=== PATIENT | female | born 1950 | race African-American/Black ===

== ENCOUNTER → 2018-05-18 | Outpatient (CLI) | payer MEDICARE ==
--- NOTE | 2018-05-18 15:50 | KCIC ---
Indication: Osteoporosis. Postmenopausal. TECHNIQUE: DEXA scan COMPARISON: None FINDINGS: The bone mineral density from L1-L4 measures 1.123 g/sq cm with T score of 0.7. The bone mineral density in the left femoral neck measures 0.991 g/sq cm with T score of 0.4. IMPRESSION: Normal bone mineral density at all measured sites. Electronically signed by: Clinton Headley DO (05/18/2018 3:46 PM) [id number]
== END | disposition home or self-care (01) ==
LOC: KCIC DEXA 11:05
DX: M81.0 Age-related osteoporosis without current pathological fracture (principal); E11.9 Type 2 diabetes mellitus without complications; Z90.710 Acquired absence of both cervix and uterus
CPT/HCPCS: 77080

== ENCOUNTER 2018-12-29 20:09 | Emergency (ER) | payer MEDICARE ==
[~2018-12-29] VITALS: Ht 160 cm; Wt 68.0 kg
[2018-12-29 20:21] VITALS: BP 182/78
[2018-12-29] MEDS ORDERED: CIPR500T94 PO (20:38)
--- NOTE | 2018-12-29 20:39 | PHYS DOC ---
Past Medical History Past Medical History: Diabetes-Type II, High Cholesterol, Hypertension Past Surgical History: Hysterectomy Alcohol Use: None Drug Use: None Adult General Chief Complaint Chief Complaint: LACERATION/AVULSION HPI HPI Patient is a 68 year old female that presents after passing out tracks and she stepped through someone's yard and stepped on some is sharp and went through her shoe. States that it cut her foot and her foot was bleeding. Has any pain at this time. Bleeding is controlled. Has a history of diabetes. Review of Systems Review of Systems Constitutional: Denies fever or chills [] Eyes: Denies change in visual acuity, redness, or eye pain [] HENT: Denies nasal congestion or sore throat [] Respiratory: Denies cough or shortness of breath [] Cardiovascular: No additional information not addressed in HPI [] GI: Denies abdominal pain, nausea, vomiting, bloody stools or diarrhea [] : Denies dysuria or hematuria [] Musculoskeletal: Denies back pain or joint pain [] Integument: Reports puncture wound to L foot. Neurologic: Denies headache, focal weakness or sensory changes [] Endocrine: Denies polyuria or polydipsia [] Complete systems were reviewed and found to be within normal limits, except as documented in this note. Allergies Allergies Allergies Coded Allergies Type Severity Reaction Last Updated Verified Penicillins Allergy Intermediate Rash 12/29/18 Yes Physical Exam Physical Exam Constitutional: Well developed, well nourished, no acute distress, non-toxic appearance. [] HENT: Normocephalic, atraumatic, bilateral external ears normal, oropharynx moist, no oral exudates, nose normal. [] Eyes: PERRLA, EOMI, conjunctiva normal, no discharge. [] Neck: Normal range of motion, no tenderness, supple, no stridor. [] Skin: dried blood and puncture wound to plantar lateral side of foot. Back: No tenderness, no CVA tenderness. [] Extremities: No tenderness, no cyanosis, no clubbing, ROM intact, no edema. [] Neurologic: Alert and oriented X 3, normal motor function, normal sensory function, no focal deficits noted. [] Psychologic: Affect normal, judgement normal, mood normal. [] Current Patient Data Vital Signs Vital Signs Date Time Temp Pulse Resp B/P (MAP) Pulse Ox O2 Delivery O2 Flow Rate FiO2 12/29/18 20:21 98.9 66 14 182/78 (112) 98 Room Air 98.9 EKG EKG [] Radiology/Procedures Radiology/Procedures [] Course & Med Decision Making Course & Med Decision Making Pertinent Labs and Imaging studies reviewed. (See chart for details) Patient has a high risk of infection due to DM. Concern for pseudomonas. Will place on Cipro. Dragon Disclaimer Dragon Disclaimer This electronic medical record was generated, in whole or in part, using a voice recognition dictation system. Departure Departure Impression: Primary Impression: Puncture wound Disposition: HOME, SELF-CARE Condition: STABLE Referrals: SHAHEEN CHANG D.O. (PCP) Patient Instructions: Puncture Wound Additional Instructions: Thank you for visiting [facility]. We appreciate you trusting us with your care. If any additional problems come up don't hesitate to return to visit us. Please follow up with your primary care provider so they can plan additional care if needed and know about the problem that you had. If symptoms worsen come back to the Emergency Department. Any concerning symptoms that start such as chest pain, shortness of air, weakness or numbness on one side of the body, running high fevers or any other concerning symptoms return to the ER. You have been prescribed an antibiotic today to help fight your infection. Please take all of the antibiotic as directed. If after 48 hours the infection is not improving, please return for more care. If the infection worsens, return to ER for additional care. Please keep wound clean and dry. Scripts Ciprofloxacin Hcl (CIPRO) 500 Mg Tablet 1 TAB PO BID for 7 Days, #14 TAB Prov: GEN FONTAINE APRN 12/29/18 GEN FONTAINE APRN Dec 29, 2018 20:38
[2018-12-29] MEDS ORDERED: DIPHTH,PERTUSS(ACELL),TET TOX 0.5 ML DISP.SYRIN. VAX IM ONE (21:00)
== END 2018-12-29 20:53 | disposition home or self-care (01) ==
LOC: ER 20:09
DX: S91.332A Puncture wound without foreign body, left foot, initial encounter (principal); E11.9 Type 2 diabetes mellitus without complications; E78.00 Pure hypercholesterolemia, unspecified; I10 Essential (primary) hypertension; Z88.0 Allergy status to penicillin; Z90.710 Acquired absence of both cervix and uterus; W22.8XXA Striking against or struck by other objects, initial encounter; Y93.89 Activity, other specified; Y92.89 Other specified places as the place of occurrence of the external cause; Y99.8 Other external cause status
CPT/HCPCS: 90471; 90715; 99283

== ENCOUNTER 2019-04-02 06:16 | Emergency (ER) | payer MEDICARE ==
[~2019-04-02] VITALS: Ht 154.9 cm; Wt 69.9 kg
[~2019-04-02 06:16] MED LIST: CIPR500T94 PO
[2019-04-02 06:20] VITALS: BP 136/79
[2019-04-02] MEDS ORDERED: TRAM-48 PO (06:52)
[2019-04-02] MEDS ORDERED: CYCL10TA2 PO (06:52)
--- NOTE | 2019-04-02 06:52 | PHYS DOC ---
Past Medical History Past Medical History: Diabetes-Type II, High Cholesterol, Hypertension Past Surgical History: Hysterectomy Alcohol Use: None Drug Use: None Adult General Chief Complaint Chief Complaint: LOWER BACK PAIN OR INJURY HPI HPI Patient is a 68 year old female patient with history of hypertension, dyslipidemia, diabetes mellitus who presents with complaint of back pain. Patient complaining of gradual onset of low back pain and bilateral hip for the last 3 days after she shoveled snow. Patient states the pain is a constant and sharp pain that getting worse with movement and activity and rated her pain 8 with activity. Patient denies radiation of pain, nausea and vomiting, focal neuro deficit, history of the same pain. Patient states she applied heat on her back and took aspirin without improvement of her pain. Review of Systems Review of Systems Constitutional: Denies fever or chills [] Eyes: Denies change in visual acuity, redness, or eye pain [] HENT: Denies nasal congestion or sore throat [] Respiratory: Denies cough or shortness of breath [] Cardiovascular: No additional information not addressed in HPI [] GI: Denies abdominal pain, nausea, vomiting, bloody stools or diarrhea [] : Denies dysuria or hematuria [] Musculoskeletal: Reports back pain or joint pain Integument: Denies rash or skin lesions [] Neurologic: Denies headache, focal weakness or sensory changes [] Endocrine: Denies polyuria or polydipsia [] All other systems were reviewed and found to be within normal limits, except as documented in this note. Current Medications Current Medications Current Medications Medications (Trade) Dose Ordered Sig/Janki Start Time Stop Time Status Last Admin Dose Admin Ketorolac Tromethamine (Toradol Im) 60 mg 1X ONCE 04/02/19 07:00 04/02/19 07:01 DC 04/02/19 07:03 60 MG Allergies Allergies Allergies Coded Allergies Type Severity Reaction Last Updated Verified Penicillins Allergy Intermediate Rash 12/29/18 Yes Physical Exam Physical Exam Constitutional: Well developed, well nourished, mild distress, non-toxic appearance. [] HENT: Normocephalic, atraumatic. Eyes: PERRLA, EOMI, conjunctiva normal, no discharge. [] Neck: Normal range of motion, no tenderness, supple, no stridor. [] Cardiovascular:Heart rate regular rhythm, no murmur [] Lungs & Thorax: Bilateral breath sounds clear to auscultation [] Abdomen: Bowel sounds normal, soft, no tenderness, no masses, no pulsatile mas ses. [] Skin: Warm, dry, no erythema, no rash. [] Back: No midline tenderness, bilateral paraspinal muscular spasm, no CVA ten derness. [] Extremities: No tenderness, no cyanosis, no clubbing, ROM intact, no edema. [] Neurologic: Alert and oriented X 3, no focal deficits noted. [] Psychologic: Affect normal, judgement normal, mood normal. [] Current Patient Data Vital Signs Vital Signs Date Time Temp Pulse Resp B/P (MAP) Pulse Ox O2 Delivery O2 Flow Rate FiO2 04/02/19 06:20 98.4 78 16 136/79 (98) 99 Room Air 98.4 EKG EKG [] Radiology/Procedures Radiology/Procedures [] Course & Med Decision Making Course & Med Decision Making Evaluation of patient in ER showed 68-year-old female patient with complaining of low back pain after physical activity that didn't get better with applying heat and taking aspirin. Patient had bilateral paraspinal muscle spasm without midline tenderness or neuro deficit. Patient treated with Toradol and felt better. Plan to discharge patient home with diagnosis of acute lumbosacral myofascial strain. Dragon Disclaimer Dragon Disclaimer This electronic medical record was generated, in whole or in part, using a voice recognition dictation system. Departure Departure Impression: Primary Impression: Acute lumbosacral myofascial strain Disposition: 01 HOME, SELF-CARE (at 0700) Condition: STABLE Referrals: SHAHEEN CHANG D.O. (PCP) Patient Instructions: Lumbosacral Strain Additional Instructions: Apply ice on the affected area Follow-up with your primary care physician in 3-5 days Return to ER if not getting better Scripts Tramadol Hcl (ULTRAM) 50 Mg Tablet 50 MG PO Q6HRS PRN for PAIN, #14 TAB 0 Refills Prov: YASMANY BAILEY MD 04/02/19 Cyclobenzaprine Hcl (CYCLOBENZAPRINE HCL) 10 Mg Tablet 1 TAB PO TID, #21 TAB Prov: YASMANY BAILEY MD 04/02/19 Problem Qualifiers Primary Impression: Acute lumbosacral myofascial strain Encounter type: initial encounter Qualified Codes: S39.012A - Strain of muscle, fascia and tendon of lower back, initial encounter YASMANY BAILEY MD Apr 02, 2019 06:52
[2019-04-02] MEDS ORDERED: KETOROLAC 60 MG/2 ML VIAL. IM ONE (07:00)
== END 2019-04-02 07:14 | disposition home or self-care (01) ==
LOC: ER 06:16
DX: S39.012A Strain of muscle, fascia and tendon of lower back, initial encounter (principal); E11.9 Type 2 diabetes mellitus without complications; E78.00 Pure hypercholesterolemia, unspecified; I10 Essential (primary) hypertension; Z90.710 Acquired absence of both cervix and uterus; R11.2 Nausea with vomiting, unspecified; Z88.0 Allergy status to penicillin; X50.9XXA Other and unspecified overexertion or strenuous movements or postures, initial encounter; X50.1XXA Overexertion from prolonged static or awkward postures, initial encounter; Y93.89 Activity, other specified; Y92.89 Other specified places as the place of occurrence of the external cause; Y99.8 Other external cause status
CPT/HCPCS: 96372; 99283; J1885

== ENCOUNTER → 2020-08-03 | Outpatient (CLI) | payer MEDICARE ==
[~2020-08-03] MED LIST changes: +CYCL10TA2 PO; +LIDOCAINE 1% Multi-Dose 20 ML VIAL. INJ ONE; +TRAM-48 PO
--- NOTE | 2020-08-03 15:13 | RAD ---
EXAM: Sonographic guided thyroid fine-needle aspiration. HISTORY: 69-year-old female presents for fine-needle aspiration of a subcentimeter right thyroid nodu le demonstrated on a study performed at an outside facility. TECHNIQUE: The risks of the procedure were discussed with the patient and written and verbal consent was obtained. A timeout was performed. Sonographic imaging of the thyroid was performed and the nodul e concern within the right thyroid lobe measuring 8 mm was identified. The skin in this location was sterilely prepped, draped and infiltrated with 1 percent lidocaine. Multiple passes were made through the nodule with 25-gauge needles using sonographic guidance. The aspirate was submitted to the patho logist for interpretation. Manual compression was maintained until hemostasis achieved. A sterile ban dage was placed. The patient tolerated the procedure without complication and was discharged in stabl e condition. IMPRESSION: Sonographic guided fine-needle aspiration of a right thyroid nodule described above. An a ddendum to this report will be submitted when pathology results are available. Electronically signed by: Opal Walker MD (08/03/2020 3:11 PM) [id number]
--- NOTE | 2020-08-04 12:11 | PATHOLOGY ---
Note [facility] Accession Number: [id number] TESTS RESULT FLAG UNITS REF RANGE LAB Clinician Provided Cytology Information No. of containers..01 Other (Miscellaneous) Source: RIGHT THYROID DIAGNOSIS: RIGHT THYROID NEGATIVE FOR MALIGNANT CELLS. THIS INTERPRETATION INCLUDES EVALUATION OF A CELL BLOCK. COMMENT POORLY CELLULAR SPECIMEN WITH FEW THYROID FOLLICULAR CELLS WITH SOME COLLOID AND RARE MACROPHAGES PRESENT. THESE FINDINGS FAVOR AN ADENOMATOID NODULE. HOWEVER THE SPECIMEN IS POORLY CELLULAR AND MAY NOT BE SUPERVISOR PRODUCT INSPECTION. SUGGEST CLINICAL AND RADIOLOGICAL CORRELATION AND FOLLOW UP. Signed out by: Bert Fontaine MD, Pathologist NPI- [id number] Performed by: Alma Velazquez, Stamp Clerk ([facility]) Gross description: 30ML, PINK, 3FX 6AD /LCS 08/04/2020 0148 Local FLAG LEGEND: L-Low Normal,H-High Normal,LL-Alert Low,HH-Alert High <-Panic Low,>-Panic High,A-Abnormal,AA-Critical Abnormal Performed at: [facility] [address] [place] [address] Bert Fontaine MD, Specimen Comment: A courtesy copy of this report has been sent to [phone], [phone] Specimen Comment: [id number] Specimen Comment: [id number] Specimen Comment: Report sent to DR LOVE / DR CHANG Specimen Comment: A duplicate report has been generated due to demographic updates. Performed at: 01 [facility] [address], [place], [place] [id number] MD Bert Fontaine MD Phone: [phone]
== END | disposition home or self-care (01) ==
LOC: US 13:25
PROVIDERS: ATTEND Otolaryngology
DX: E04.1 Nontoxic single thyroid nodule (principal); Z79.899 Other long term (current) drug therapy; Z88.0 Allergy status to penicillin
CPT/HCPCS: 10005; 76942; 88173; 88305

== ENCOUNTER → 2020-08-24 | Outpatient (CLI) | payer MEDICARE ==
[~2020-08-24] MED LIST changes: -LIDOCAINE 1% Multi-Dose 20 ML VIAL. INJ ONE
--- NOTE | 2020-08-24 08:24 | RAD ---
Clinical indications: Malignant hypertension. Renal artery stenosis. Evaluation for renal scarring/at rophy. Findings: Duplex sonography including lozada scale and color flow and spectral waveform analysis of the renal arteries and veins was performed. The peak systolic flow velocity of the right main renal artery is: Proximal: 104cm/sec Mid aspect: 69 cm/sec Distal: 64 cm/sec The peak systolic flow velocity of the left main renal artery is: Proximal: 107 cm/sec Midaspect: 78 cm/sec Distal: 66 cm/sec The peak systolic flow velocity of the abdominal aorta is 121 cm/sec. Therefore, the renal artery/aortic ratio on the right side is 0.86. Normal is less than 3.5. Therefore, the renal artery/aortic ratio on the left side is 0.89. Normal is less than 3.5. Color-Doppler flow is identified within the right main renal vein. Color-Doppler flow is identified within the left main renal vein. The longitudinal dimension of the right kidney is 10.5 cm. No hydronephrosis is seen. The longitudinal dimension of the left kidney is 10.4 cm. No hydronephrosis is seen. The average resistive index of the right kidney is 0.72. The average resistive index of the left kidn ey is 0.77. IMPRESSION: 1.No hemodynamically significant plaque formation or flow-limiting stenosis is seen within either the left or right main renal arteries. 2. No significant renal atrophy is seen on either side. Electronically signed by: Aime Landrum MD (08/24/2020 8:22 AM) [id number]
--- NOTE | 2020-08-24 11:19 | CARD ---
MR#: [id number] Date of Study: 08/24/2020 Ordering Physician: BIB NEAL, Referring Physician: BIB NEAL Tech: Uma Murray [facility] APPROVED REPORT EXAM: Two-dimensional and M-mode echocardiogram with Doppler and color Doppler. Other Information Quality : GoodHR: 63bpm Rhythm : NSR INDICATION Hypertension/HCVD RISK FACTORS Hypertension Obesity 2D DIMENSIONS RVDd2.4 (2.9-3.5cm)Left Atrium(2D)3.7 (1.6-4.0cm) IVSd0.9 (0.7-1.1cm)Aortic Root(2D)2.8 (2.0-3.7cm) LVDd4.2 (3.9-5.9cm)LVOT Diameter2.0 (1.8-2.4cm) PWd0.8 (0.7-1.1cm)LVDs2.5 (2.5-4.0cm) FS (%) 40.4 %SV56.7 ml LVEF(%)71.5 (>50%) Aortic Valve AoV Peak Giovanny.136.6cm/sAoV VTI27.9cm AO Peak GR.7.5mmHgLVOT Peak Giovanny.104.5cm/s AO Mean GR.3mmHgAVA (VMAX)2.32cm2 Mitral Valve MV E Xfenjcdy78.5cm/sMV DECEL [id number] MV A Udmndsdn90.3cm/sE/A Ratio1.1 Tricuspid Valve TR P. Syonaymq508im/sTR Peak Gr.44mmHg Pulmonary Vein S1 Jqrgycfn23.3cm/sD2 Hrhsfgtu41.2cm/s PVa [id number] LEFT VENTRICLE The left ventricle is normal size. There is normal left ventricular wall thickness. The left ventricu lar systolic function is normal and the ejection fraction is within normal range. EF 55% There is nor mal LV segmental wall motion. The left ventricular diastolic function and filling is normal for age. RIGHT VENTRICLE The right ventricle is normal size. There is normal right ventricular wall thickness. The right ventr icular systolic function is normal. ATRIA The left atrium size is normal. The right atrium size is normal. The interatrial septum is intact wit h no evidence for an atrial septal defect or patent foramen ovale as noted on 2-D or Doppler imaging. AORTIC VALVE The aortic valve is normal in structure and function. Doppler and Color Flow revealed no significant aortic regurgitation. There is no significant aortic valvular stenosis. MITRAL VALVE The mitral valve is normal in structure and function. There is no evidence of mitral valve prolapse. There is no mitral valve stenosis. Doppler and Color-flow revealed mild mitral regurgitation. TRICUSPID VALVE The tricuspid valve is normal in structure and function. Doppler and Color Flow revealed mild tricusp id regurgitation. Estimated PAP 47 mmHg. There is no tricuspid valve stenosis. PULMONIC VALVE Doppler and Color Flow revealed trace pulmonic valvular regurgitation. There is no pulmonic valvular stenosis. GREAT VESSELS The aortic root is normal in size. The ascending aorta is normal in size. The IVC is normal in size a nd collapses >50% with inspiration. PERICARDIAL EFFUSION There is no evidence of significant pericardial effusion. Critical Notification Critical Value: No <Conclusion> The left ventricular systolic function is normal and the ejection fraction is within normal range. EF 55% There is normal LV segmental wall motion. Doppler and Color Flow revealed mild tricuspid regurgitation. Estimated PAP 47 mmHg. Signed by : Evan Bowers, Electronically Approved : 08/24/2020 11:18:43
== END ==
LOC: US 07:00
PROVIDERS: ATTEND Internal Medicine Cardiovascular Disease
DX: I08.1 Rheumatic disorders of both mitral and tricuspid valves (principal); I70.1 Atherosclerosis of renal artery; I10 Essential (primary) hypertension
CPT/HCPCS: 93306; 93975